=== PATIENT | male | born 1995 | race Caucasian/White ===

== ENCOUNTER 2016-07-14 07:09 | Emergency (ER) | payer BC ==
--- NOTE | 2016-07-14 08:45 | RAD ---
Indication: Lack of coordination. Fall. CT of the brain was performed without IV contrast. Ventricular structures are midline. No midline shift is noted. The extraction spaces are unremarkable. The study is limited due to motion artifact. No definite intracranial mass or hemorrhage is noted. Mastoid air cells and paranasal sinuses are otherwise unremarkable. IMPRESSION: No intracranial mass or hemorrhage is identified.
--- NOTE | 2016-07-14 08:45 | RAD ---
INDICATION: Altered mental status COMPARISON: September 20, 2015 TECHNIQUE: An AP seated portable view obtained at 0830 hours is submitted. FINDINGS: Bones/Soft Tissues: There are no acute bony findings. Cardiomediastinal: The cardiomediastinal silhouette is normal. Lungs: There are no infiltrates. Pleura: There are no pleural effusions. Other: None IMPRESSION: NO ACTIVE DISEASE.
[2016-07-14 08:55] LABS: Hematocrit 42 % (42-52); Hemoglobin 14.1 g/dl (14.0-18.0); Mean Corpuscular HGB Conc 33 g/dl (31-36); Mean Corpuscular Hemoglobin 28 pg (27-31); Mean Corpuscular Volume 83 fL (80-94); Mean Platelet Volume 9 um3 (7.4-10.4); Red Blood Count 5.06 10^6/ul (4.0-5.4); Red Cell Distribution Width 13 % (10.5-15); White Blood Count 8.2 10^3/ul (3.5-10.8)
[2016-07-14 09:11] LABS: ALT 8 U/L (7-52); AST 13 U/L (13-39); Albumin 4.4 g/dL (3.2-5.2); Alkaline Phosphatase 60 U/L (34-104); Anion Gap 5 mmol/L (2-11); BUN/Creatinine Ratio 23.7 (8-20); Blood Urea Nitrogen 27 mg/dL (6-24); CO2 Carbon Dioxide 28 mmol/L (22-32); Calcium 9.3 mg/dL (8.6-10.3); Chloride 103 mmol/L (101-111); Cholesterol 114 mg/dL; EGFR African American 106.4 (>60); EGFR Non-African American 82.8 (>60); Globulin 2.7 g/dL (2-4); Glucose 99 mg/dL (70-100); HDL Cholesterol 35.4 mg/dL; LDL Cholesterol 67 mg/dL; Potassium 3.7 mmol/L (3.5-5.0); Sodium 136 mmol/L (133-145); Total Protein 7.1 g/dL (6.4-8.9); Triglycerides 58 mg/dL
[2016-07-14] MEDS ORDERED: Gadobenate* (CONTRAST) 529 MG/ML 10 ML SDV IV ONE (09:24)
--- NOTE | 2016-07-14 10:18 | RAD ---
Indication: Syncope. MRA of the head was performed utilizing 3-D [id number] technique. Multiple maximum intensity projection images were obtained. The intracranial carotid arteries demonstrates no evidence of carotid artery dissection. Anterior and middle cerebral arteries are unremarkable. No evidence of aneurysmal dilatation or branch occlusion is noted. The basilar artery and posterior cerebral arteries are otherwise unremarkable. IMPRESSION: No evidence of branch occlusion or aneurysmal dilatation is noted.
--- NOTE | 2016-07-14 10:29 | RAD ---
Indication: Syncope. MRA of the neck was performed after IV contrast administration. 15 mL of MultiHance was injected. Axial 2-D drrr-au-ccmauh images were also obtained. The origins of the great vessels demonstrate normal origins of the brachiocephalic and left common carotid artery. The right common carotid artery also demonstrates no significant stenosis. The internal carotid arteries demonstrate no evidence of stenosis. No evidence of carotid artery dissection is noted. The vertebral arteries are visualized. No evidence of vertebral artery dissection is noted. IMPRESSION: MRA of the neck demonstrates no evidence of carotid artery stenosis or dissection.
--- NOTE | 2016-07-14 10:32 | RAD ---
Indication: Ataxia, syncope. Sagittal and axial T1, axial T2, FLAIR, diffusion and susceptibility weighted images of the brain were obtained. 15 mL of MultiHance was injected intravenously and sagittal, coronal and axial T1-weighted images was obtained after contrast administration. Ventricular structures are midline. No midline shift is noted. The extra-axial spaces are unremarkable. There is no evidence of intracranial mass or hemorrhage. No other high or low signal lesions are identified. No evidence of susceptibility weighted artifact is noted. No restriction of diffusion is noted. Postcontrast images demonstrates no evidence of abnormal enhancement. The bony calvaria is otherwise unremarkable. IMPRESSION: No intracranial lesion is identified.
[2016-07-14] MEDS ORDERED: NS 0.9% 1000 ML* 1,000 ML IV ONE ×2 (10:57→11:56)
[2016-07-14 11:23] LABS: Urine Bacteria Absent (Absent); Urine Bilirubin Negative (Negative); Urine Glucose Negative (Negative); Urine Nitrite Negative (Negative)
--- NOTE | 2016-07-14 11:54 | RAD ---
Indication: Neck pain after fall. CT of the cervical spine was obtained in the axial plane. Sagittal and coronal reconstructed images were obtained. The skull base demonstrates no evidence of fracture. Mastoid air cells are otherwise unremarkable. The vertebral bodies appear normal in height and alignment. No fracture is noted. No evidence of facet malalignment is noted. Spinous processes and transverse processes are otherwise unremarkable. No evidence of focal protrusion is noted at any of the cervical spine. The visualized ribs are unremarkable. IMPRESSION: No fracture of the cervical spine is identified.
[2016-07-14 12:04] LABS: Alcohol < 10 mg/dL (<10)
[2016-07-14 12:20] LABS: Benzodiazepine Urine Screen None Detected (None Detect)
[2016-07-14] MEDS ORDERED: Ketorolac INJ* 30 MG/ML 1 ML VIAL IV PUSH ONE (13:00)
[2016-07-14 13:13] VITALS: BP 125/54
--- NOTE | 2016-07-14 20:43 | CONS ---
NEUROLOGY CONSULTATION: DATE OF CONSULTATION: 07/14/16 LOCATION: He is in the emergency room. REFERRING PROVIDER: Dr. Ham. CHIEF COMPLAINT: Episode of loss of consciousness. 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 The history is from his [employer] captain and mainly from the patient as well as from Dr. Ham. He had been a little bit sleep deprived coming off of a cold this past week. He might have had a fever a few nights ago, but he feels that that resolved. He was exercising this morning and he remembers that part of it including doing pushups. The next thing, he knew he was surrounded by his and had ice packs under his legs and they were elevated. Reports given including from his captain who was not at the scene, but was told by others was that after a run, his legs buckled and he collapsed to the ground. He may have hit his occiput that is what he was told by other people. He had some soreness at the base of his skull subsequently. He was brought into the emergency room and was examined by Dr. Ham and it was felt to have nystagmus as well as dysmetria. Since that time, he says he is feeling better. He still has some pain near his occiput. He has not had any vertigo, but he did have some dizziness upon standing when he was trying to use the bathroom earlier today. He has not experienced any change in his vision nor numbness nor tingling in his limbs. Prior to this morning, he had not had any problems with headaches of note or any prior head trauma. Other than the cold, he had been feeling relatively well other than being sleep deprived trying to keep up with his academic work. PAST MEDICAL HISTORY: Notable for right foot surgery for a fracture about 3 months ago. He was here with pharyngitis in the emergency room earlier this year. Other than that, he has no significant past medical history. MEDICATIONS: He does not take any medications on a regular basis. ALLERGIES: According to computer records, he does not have any drug allergies. REVIEW OF SYSTEMS: Notable for the cold which consisted mainly of some nasal stuffiness and perhaps a fever. No history of head trauma or significant history of headaches. No other significant past medical history. PHYSICAL EXAMINATION: He appears well nourished and currently appears well hydrated. Temperature 98.2 orally, blood pressure running about 130/70, heart rate generally in the 70s, was 99 when he first came in. Neck is supple. There is some tenderness near the base of his skull occipitally, but there is no contusion or laceration. Neck range of motion is full. Heart is in a regular rate and rhythm without murmurs and lungs are clear bilaterally. Carotid pulses are present and there are no anterior or posterior cervical bruits. Oral mucosa is moist and there is no evidence of oral trauma. Neurologically, pupils react equally from 5 down to about 2.5 mm. Funduscopic exam reveals sharp disks bilaterally. Visual hwang are full to confrontation. There is no ptosis. Eye movements are normal other than some impersistence of gaze, which goes away with encouragement. Facial musculature is symmetric. Facial sensation to light touch and pin is symmetric. Palate and tongue appear normal. Speech is slow, but clear. Motor exam reveals normal muscle tone and strength proximally and distally in upper and lower extremities. There is a little bit of pseudo-drift with elevation of the right arm, but no actual pronator drift. Sensory exam in the limbs is intact to light touch, pin, vibration, and proprioception. Reflexes are intact and symmetric at brachioradialis, knees, and ankles. He has bilateral antecubital IVs. Plantar responses are flexor bilaterally. Wvhxhh-kh-hjha maneuver is slow, but accurate bilaterally. Finger taps are bit slow on both hands symmetrically. Kajz-ai-sjtz maneuver is normal. I did not attempt to ambulate him. Mentally, he is a bit sluggish, but languages are fluent. Memory is intact other than the epoch described above. Attention and concentration seemed somewhat impaired. DIAGNOSTIC STUDIES/LAB DATA: Laboratory data includes a normal CBC other than a slightly low lymphocyte count at 18.6%. White blood cell count is normal at 8.2, however. INR and PTT are within normal limits. Chemistry profile notable for an elevated BUN at 27 and BUN and creatinine ratio at 23.7. CT of the brain, MRI of the brain, MR angiogram of the neck and head were all reviewed and all are normal. IMPRESSION: Probable faint in the setting of exercise and dehydration and probable concussion. There is no evidence of a primary intracranial process, central nervous system infection, or metabolic disorder. He does have a toxicology and alcohol screen pending. At this point, I will just hydrate him and treat his head pain symptomatically. I would make sure he is safe to ambulate before considering discharge. [id number]/CPS #: [id number] MTDD
--- NOTE | 2016-07-24 17:55 | ED ---
echo Kerr Timothy, scribed for Igor Ham MD on 07/14/16 at 0747 . Syncope/Near Syncope - HPI Summary HPI Summary: Irvin Jimenez is a 20 yo male presenting to [facility] S/P a witnessed syncopal episode at 0638 this morning. He states he only had 3 hours of sleep last night since he has been studying for a test, but did eat breakfast this morning. Pt states morning workouts begin at 0545. Present in room is [facility]. Per the lieutenant, he was about half a mile into a 3/4 mile run, and fell backward and did not hit his head. He was given water, and ice packs were applied to his legs and groin. His consciousness began to fade, and answers to questions were very slow, but accurate. Police checked his pupils, and they were MORGAN. The lieutenant states he never saw the Pt lose consciousness. The Pt states he was running on a track inside at [place], and his legs gave out from under him, and he lost consciousness. After that, Pt's response was appropriate, but delayed. He states he feels better currently. He was confused at the time of syncope, and doesn't really remember any details surrounding the episode. He is currently in 6/10 pain, in the form of ALLEN and neck pain, and is dizzy. He did not bite his tongue, and was not incontinent. He is oriented to person, time and place. He does not normally wear glasses. His MHx includes PNA 3 weeks ago, he denies any other MHx - History Of Current Complaint Time Seen by Provider: 07/14/16 07:57 Hx Obtained From: Patient Onset/Duration: Sudden Onset, Lasting Minutes Timing: Intermittent Episode Lasting Context: Unwitnessed, Loss Of Consciousness Activity At Onset: Exertion Associated Head Trauma: No Alleviating Factor(s): Spontaneous Resolution Associated Signs And Symptoms: Dizzy, Headache - Allergies/Home Medications Allergies/Adverse Reactions: Allergies Allergy/AdvReac Type Severity Reaction Status Date / Time No Known Allergies Allergy Verified 07/14/16 07:58 PMH/Surg Hx/FS Hx/Imm Hx Endocrine/Hematology History: Denies: Hx Diabetes Cardiovascular History: Denies: Hx Hypertension, Hx Pacemaker/ICD History: Denies: Hx Renal Disease Sensory History: Denies: Hx Hearing Aid Psychiatric History: Denies: Hx Panic Disorder - Surgical History Surgery Procedure, Year, and Place: ADENOIDS-2003. ENLARGED URETHRA AGE 10 Infectious Disease History: No Infectious Disease History: Denies: Traveled Outside the [place] in Last 30 Days - Family History Known Family History: Negative: Other - strokes, mulile sclerosis - Social History Alcohol Use: None Substance Use Type: Reports: None Smoking Status (MU): Never Smoked Tobacco Review of Systems Constitutional: Negative Negative: Fever, Chills Eyes: Negative Negative: Other - eye redness ENT: Negative Negative: Sore Throat Cardiovascular: Negative Negative: Chest Pain Respiratory: Negative Negative: Shortness Of Breath, Cough Gastrointestinal: Negative Negative: Abdominal Pain, Vomiting, Nausea Genitourinary: Negative Negative: dysuria, hematuria Musculoskeletal: Negative Negative: Myalgia, Edema - leg Skin: Negative Negative: Rash Neurological: Other - dizziness, possible memory loss Positive: Syncope Psychological: Normal All Other Systems Reviewed And Are Negative: Yes Physical Exam - Summary Physical Exam Summary: Constitutional: Well-developed, Well-nourished, Alert. (-) Distressed Skin: Warm, Dry HENT: Eyes: Conjunctiva normal Neck: Musculoskeletal ROM normal neck. (-) JVD, (-) Stridor, (-) Tracheal deviation Cardio: Rhythm regular, rate normal, Heart sounds normal; Intact distal pulses ; The pedal pulses are 2+ and symmetric. Radial pulses are 2+ and symmetric. (- ) Murmur Pulmonary/Chest wall: Effort normal. (-) Respiratory distress, (-) Wheezes, (-) Rales Abd: Soft. (-) Tenderness, (-) Distension, (-) Guarding, (-) Rebound Musculoskeletal: (-) Edema Lymph: (-) Cervical adenopathy Neuro: Alert, Oriented x3, Strength normal, Cranial nerves II-XII are grossly intact. (+) Dysmetria bilateral, (+) Nystagmus, (+) Ataxia by finger to nose testing, (-) Sensory deficit, pronator drift LUE. Psych: Mood and affect Normal Triage Information Reviewed: Yes Vital Signs On Initial Exam: Initial Vitals Temp Pulse Resp BP Pulse Ox 98.2 F 83 18 144/85 99 07/14/16 07:23 07/14/16 07:23 07/14/16 07:23 07/14/16 07:23 07/14/16 07:23 Vital Signs Reviewed: Yes Diagnostics - Vital Signs Vital Signs Temp Pulse Resp BP Pulse Ox 07/14/16 07:23 98.2 F 83 18 144/85 99 - Laboratory Result Diagrams: 07/14/16 08:47 07/14/16 08:47 Lab Statement: Any lab studies that have been ordered have been reviewed, and results considered in the medical decision making process. - Radiology CXR Xray Interpretation: No Acute Changes - IMPRESSION: NO ACTIVE DISEASE. Radiology Interpretation Completed By: Radiologist Head MRA Xray Interpretation: No Acute Changes - IMPRESSION: No evidence of branch occlusion or aneurysmal dilatation is noted. Radiology Interpretation Completed By: Radiologist Neck MRA Xray Interpretation: No Acute Changes - IMPRESSION: MRA of the neck demonstrates no evidence of carotid artery stenosis or dissection. Radiology Interpretation Completed By: Radiologist Brain MRI Xray Interpretation: No Acute Changes - IMPRESSION: No intracranial lesion is identified. Radiology Interpretation Completed By: Radiologist - CT Brain CT Interpretation: No Acute Changes - IMPRESSION: No intracranial mass or hemorrhage is identified. CT Interpretation Completed By: Radiologist C-spine CT Interpretation: No Acute Changes - IMPRESSION: No fracture of the cervical spine is identified. CT Interpretation Completed By: Radiologist - EKG 1042 Cardiac Rate: NL - 64 BPM EKG Interpretation: Sinus arrhythmia @ 64 BP. J point elevations in II, AVF, V5 , V6 National Institutes Of Health - NIH Scale Level of Consciousness: Alert/Keenly Responsive Ask Patient the Month and His/Her Age: Both Correct Ask Pt to Open/Close Eyes and Vet Assistant/Release Non-Paretic Hand: Both Correctly Best Gaze (Only Horizontal Eye Movement): Normal Visual Field Testing: No Visual Loss Facial Paresis-Pt to Smile & Close Eyes or Grimace Symmetry: Normal/Symmetrical Motor Function - Right Arm: No Drift-Holds 10 Seconds Motor Function - Left Arm: Drifts LT 10 seconds Motor Function - Right Leg: No Drift-Holds 10 Seconds Motor Function - Left Leg: No Drift-Holds 10 Seconds Limb Ataxia-Must be out of Proportion to Weakness Present: Present in One Limb - left Sensory (Use Pinprick to Test Arms/Legs/Trunk/Face): Normal Best Language (Describe Picture, Name Items): No Aphasia Dysarthria (Read Several Words): Normal Extinction and Inattention: No Abnormality Total Score: 2 Re-Evaluation - Re-Evaluation First Eval Re-Evaluation Time: 08:38 Change: Unchanged Comment: Pt is complaining of intense ALLEN. Slight left facial droop. Second Eval Re-Evaluation Time: 12:54 Change: Improved Comment: Pt has improved conversational capabilities. He is not exhibiting any focal deficits. Course/Dx Assessment/Plan: Irvin Jimenez is a 20 yo male presenting to [facility] with either syncope or memory loss. Present in room is his lieutenant, who states he never saw the Pt lose consciousness, but Pt states he does not remember what happened to him, only that his legs folded underneath him. Pt scored a 0 on the NIH stroke scale, and is slow but accurate in responses to questions. After clinical examination and evaluation by Dr. Camara, as well as negative CXR, normal EKG, negative head MRA, negative neck MRA, and negative brain MRI, he will be discharged home with syncope, postconcussive syndrome, and dehydration. - Diagnoses Provider Diagnoses: Postconcussive syndrome, Syncope, Dehydration - Physician Notifications Discussed Care Of Patient With: 0816 - Dr. Camara (neuology) - discussed Pt condition, will evaluate Pt if necessary. Recommends MRI/MRA with negative CT brain. 0847 - Dr. Guzman (neuroradiologist) - discussed Pt condition, recommends STAT MRI and will facilitate. 1109 - Dr. Camara (neurology) - discussed Pt condition and results of MRI/MRA's. Will come down to evaluate Pt. 1153 - Dr. camara (neurology) - discussed evaluation of Pt, recommends discharge Discharge - Discharge Plan Condition: Stable Disposition: HOME Patient Education Materials: Syncope (ED), Dehydration (ED) Forms: *School Release, *Physical Education Release Referrals: [facility] ANALI Lara [Primary Care Provider] - 1 Day Additional Instructions: Please follow up with Anali regarding your visit to the emergency department today. Return to the emergency department with any new or recurring symptoms. The documentation as recorded by the echo millan Timothy accurately reflects the service I personally performed and the decisions made by me, Igor Ham MD.
== END 2016-07-14 13:47 | disposition home or self-care (01) ==
LOC: ED 07:09
DX: F07.81 Postconcussional syndrome (principal); R55 Syncope and collapse; R42 Dizziness and giddiness; E86.0 Dehydration; R51 Headache
CPT/HCPCS: 36415; 70450; 70544; 70549; 70553; 71010; 72125; 80053; 80061; 80307; 80320; 81003; 83605; 84484; 85025; 85610; 85730; 86850; 86900; 86901; 93005; 99285; A9577; G0480; J1885

== ENCOUNTER 2017-07-21 00:34 | Observation (INO) | payer BC ==
[2017-07-21] MEDS ORDERED: NS 0.9% 1000 ML* 2,000 ML IV ONE (01:18)
[2017-07-21] MEDS ORDERED: Acetaminophen TAB* 325 MG PO ONE (01:18)
[2017-07-21] MEDS ORDERED: Ketorolac INJ* 30 MG/ML 1 ML VIAL IV PUSH ONE (01:20)
[2017-07-21] MEDS ORDERED: Levofloxacin 750 MG IVPREMIX(* 750 MG/150 ML BAG IVPB ONE (01:20)
[2017-07-21 01:45] LABS: ABS Basophils 0 10^3/ul (0-0.2); ABS Eosinophils 0.1 10^3/ul (0-0.6); ABS Lymphocytes 0.9 10^3/ul (1.0-4.8); ABS Monocytes 1.1 10^3/ul (0-0.8); ABS Neutrophils 18.2 10^3/ul (1.5-7.7); ABS Nucleated RBC 0 10^3/ul; Eosinophil % 0.3 % (0-6); Hematocrit 38 % (42-52); Hemoglobin 12.6 g/dl (14.0-18.0); Lymphocyte % 4.5 % (25-47); Mean Corpuscular HGB Conc 34 g/dl (31-36); Mean Corpuscular Hemoglobin 28 pg (27-31); Mean Corpuscular Volume 83 fL (80-94); Mean Platelet Volume 8 um3 (7.4-10.4); Nucleated Red Blood Cells % 0; Platelet Count 200 10^3/ul (150-450); Red Blood Count 4.51 10^6/ul (4.0-5.4); Red Cell Distribution Width 13 % (10.5-15); White Blood Count 20.3 10^3/ul (3.5-10.8)
[2017-07-21 01:58] LABS: EGFR Non-African American 85.3 (>60)
[2017-07-21] MEDS ORDERED: NS 0.9% 1000 ML* 1,000 ML IV SCH (02:45)
--- NOTE | 2017-07-21 02:45 | ED ---
Konrad Kerr Stephanie, scribed for Essie Yee MD on 07/21/17 at 0122 . HPI Febrile Illness - HPI Summary HPI Summary: The pt is a 21 y/o M presenting to the ED with c/o fever that began on 07/18/17. Symptoms include cough that began 1 month ago and CP with deep breaths. The pt took 1 Alieve in the morning, 2 in the afternoon, and one Dayquil tablet 2 hours ago. - History of Current Complaint Chief Complaint: EDFluSymptoms Time Seen by Provider: 07/21/17 00:59 Hx Obtained From: Patient Onset/Duration: Started Days Ago - 3, Still Present Timing: Constant Current Severity: Mild Pain Intensity: 0 Pain Scale Used: 0-10 Numeric Aggravating Factors: Nothing Alleviating Factors: Nothing Associated Signs and Symptoms: Cough, Other: - CP with deep breath - Allergy/Home Medications Allergies/Adverse Reactions: Allergies Allergy/AdvReac Type Severity Reaction Status Date / Time No Known Allergies Allergy Verified 07/14/16 07:58 PMH/Surg Hx/FS Hx/Imm Hx Endocrine/Hematology History: Denies: Hx Diabetes Cardiovascular History: Denies: Hx Hypertension, Hx Pacemaker/ICD History: Denies: Hx Renal Disease Sensory History: Denies: Hx Hearing Aid Psychiatric History: Denies: Hx Panic Disorder - Surgical History Surgery Procedure, Year, and Place: [facility]ENOIDS-2002. ENLARGED URETHRA AGE 10 Infectious Disease History: No Infectious Disease History: Denies: Traveled Outside the [place] in Last 30 Days - Family History Known Family History: Negative: Other - strokes, mulile sclerosis - Social History Occupation: Student Lives: Dormitory/Roommates Alcohol Use: None Substance Use Type: Reports: None Smoking Status (MU): Never Smoked Tobacco Review of Systems Positive: Fever Positive: Chest Pain - with deep breath Positive: Cough All Other Systems Reviewed And Are Negative: Yes Physical Exam - Summary Physical Exam Summary: VITAL SIGNS: Reviewed. GENERAL: Patient is a well-developed and nourished MALE who is lying comfortable in the stretcher. Patient is not in any acute respiratory distress. HEAD AND FACE: No signs of trauma. No ecchymosis, hematomas or skull depressions. No sinus tenderness. EYES: PERRLA, EOMI x 2, No injected conjunctiva, no nystagmus. EARS: Hearing grossly intact. Ear canals and tympanic membranes are within normal limits. MOUTH: Oropharynx within normal limits. NECK: Supple, trachea is midline, no adenopathy, no JVD, no carotid bruit, no c- spine tenderness, neck with full ROM. CHEST: Symmetric, no tenderness at palpation LUNGS: Rales over L base. No wheezing or crackles. CVS: tackycardic. Regular rhythm, S1 and S2 present, no murmurs or gallops appreciated. ABDOMEN: Soft, non-tender. No signs of distention. No rebound no guarding, and no masses palpated. Bowel sounds are normal. EXTREMITIES: FROM in all major joints, no edema, no cyanosis or clubbing. NEURO: Alert and oriented x 3. No acute neurological deficits. Speech is normal and follows commands. SKIN: Dry and warm Triage Information Reviewed: Yes Vital Signs On Initial Exam: Initial Vitals Temp Pulse Resp BP Pulse Ox 101.4 F 120 16 134/54 99 07/21/17 00:36 07/21/17 00:36 07/21/17 00:36 07/21/17 00:36 07/21/17 00:36 Vital Signs Reviewed: Yes Diagnostics - Vital Signs Vital Signs Temp Pulse Resp BP Pulse Ox 07/21/17 00:36 101.4 F 120 16 134/54 99 - Laboratory Lab Results: Lab Results 07/21/17 Range/Units 00:48 Influenza A (Rapid) Negative (Negative) Influenza B (Rapid) Negative (Negative) Result Diagrams: 07/21/17 01:30 07/21/17 01:30 Lab Statement: Any lab studies that have been ordered have been reviewed, and results considered in the medical decision making process. - Radiology CXR Xray Interpretation: No Acute Changes Radiology Interpretation Completed By: ED Physician - Left lower lobe infiltrates. Course/Dx - Course Course Of Treatment: Dr. Rajput agrees to admit the pt to the hospital at 02:06. - Diagnoses Provider Diagnoses: PNA (pneumonia) - Provider Notifications Discussed Care Of Patient With: Briana Rajput - Agrees to admit the pt. Time Discussed With Above Provider: 02:07 Discharge - Discharge Plan Condition: Stable Disposition: ADMITTED TO [facility] Patient Education Materials: Pneumonia (ED) Referrals: [facility] - Nahun ELKINS [Primary Care Provider] - The documentation as recorded by the Konrad millan Stephanie accurately reflects the service I personally performed and the decisions made by me, Essie Yee MD.
[2017-07-21] MEDS ORDERED: Ketorolac INJ* 15 MG/ML 1 ML VIAL IV PUSH PRN (02:51)
[2017-07-21] MEDS: Benzonatate CAP* 100 MG PO PRN ×3 (05:04→21:00)
--- NOTE | 2017-07-21 08:06 | RAD ---
INDICATION: Cough. COMPARISON: Comparison is made with prior chest x-ray study from July 14, 2016. TECHNIQUE: Dual-energy PA and lateral views of the chest were obtained. FINDINGS: The heart is within normal limits in size. Mediastinal and hilar contours appear within normal limits. There is a focal moderate size infiltrate in the left lower lobe most consistent with pneumonia. No pleural effusion is seen. The right lung appears clear. IMPRESSION: LEFT LOWER LOBE INFILTRATE MOST CONSISTENT WITH PNEUMONIA.
--- NOTE | 2017-07-21 08:47 | HP ---
CC: Former[facility], [facility].* HISTORY AND PHYSICAL: DATE OF ADMISSION: 07/21/17 PRIMARY CARE PROVIDER: [facility]. CHIEF COMPLAINT: Weakness, flu-like symptoms. HISTORY OF PRESENT ILLNESS: Mr. Jimenez is a 21-year-old male who has been sick for the last 3 to 4 weeks. He states that he has had a persistent cough over that period of time. He has been bringing up sputum. He has had intermittent fevers, though he is unaware of high these have gone. The patient states that he was treated with azithromycin for a 5-day course; this finished the day prior to admission. The patient's friends noted on the day prior admission that he had become markedly weak. The patient complained of dizziness. He reportedly had a fall. He had difficulty climbing stairs. His friends state that he was incoherent and acting like he was drunk. Ultimately, his friends convinced him to present to the emergency room for evaluation. PAST MEDICAL HISTORY: Pneumonia approximately 2 years ago. PAST SURGICAL HISTORY: Right foot surgery x2. MEDICATIONS: 1. Advil. 2. Tylenol. 3. Aleve. ALLERGIES: No known drug allergies. FAMILY HISTORY: Mom is living; she is healthy. Dad is also living and healthy. SOCIAL HISTORY: The patient is a nonsmoker. He states he has not drank alcohol in the last approximately one month. Prior to that, he used to drink alcohol on occasion. He denies any recreational drugs. 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 He is also an [employer]. He is originally from [place]. He is not . He has no children. He indicates that his mom, Flora, phone number [phone], would be his surrogate decision maker. REVIEW OF SYSTEMS: A complete 11 system review of systems is obtained. Pertinent positives and negatives are as per HPI; and, in addition, the patient states his appetite has been poor. He also states that his chest feels tight. Otherwise, review of systems is negative. PHYSICAL EXAMINATION GENERAL: The patient is a well-developed, young male sitting in the stretcher, appearing to be acutely ill with a flushed face and sweat beads noted on his forehead, but in no acute distress. VITAL SIGNS: Blood pressure 114/50, pulse 95, respirations 16, temp 101.4, and O2 sat 92% to 95% on room air. HEENT: Pupils are equal and round. Extraocular movements are intact. Oropharynx is clear. Oral mucosa is moist. The patient has a posterior cervical chain lymph node on the left. He states it has been present for approximately 4 months. There is no other adenopathy noted. Thyroid is not enlarged. No thyroid nodules are noted. PULMONARY: Deep breath triggers cough, but otherwise lungs are clear to auscultation bilaterally. CARDIAC: Normal S1 and S2. Regular, rate, and rhythm. I do not appreciate any murmurs. There is no lower extremity edema. ABDOMEN: Bowel sounds are present. Abdomen is soft, nontender, and nondistended. MUSCULOSKELETAL: There is no cyanosis or clubbing of the digits. There is full active range of motion of all 4 extremities. SKIN: Warm and dry, there are no rashes. NEUROLOGIC: Cranial nerves II through XII are grossly intact. Sensation is intact to light touch throughout. Strength is 5/5 and symmetric in both upper and lower extremities bilaterally. PSYCH: The patient is alert, he is oriented x3. Affect appears appropriate. LABORATORY DATA: WBC 20.3, hemoglobin 12.6, hematocrit 38, platelets 200. Absolute neutrophils 18.2. Sodium 133, potassium 3.8, chloride 100, CO2 of 26, BUN 18, creatinine 1.10, glucose 120, lactic acid 0.6, calcium 9.2, bilirubin 0.3, AST 19, ALT 18, alk phos 75, CRP 238.11, and albumin 4.0. Influenza A and B negative. Chest x-ray to my evaluation shows possible left lower lobe infiltrate. ASSESSMENT AND PLAN: Mr. Jimenez is a 21-year-old male with no significant past medical history who presents to the emergency room after having a prolonged illness over the last 3 to 4 weeks where he has felt as if he has the flu, now with increased weakness, dizziness, and appearing confused on the night prior to admission. 1. Sepsis secondary to left lower lobe pneumonia. The patient is septic based on sepsis-2 criteria, but no sepsis-3 criteria. There is no evidence of end- organ dysfunction. The patient's friend stated at this point after receiving some IV fluids in the emergency room he is appearing somewhat better. The patient will be admitted to be given IV fluid hydration and IV antibiotics. The patient will receive Levaquin 500 mg IV daily. He has already received a dose of 750 mg in the emergency room. Urine for Legionella and strep pneumoniae antigens will be sent. Additionally, we will attempt to get a sputum culture. I am adding on a procalcitonin to the labs drawn in the emergency room. The patient's infiltrate appears slightly odd on the chest x-ray. Perhaps a CT chest would be warranted, especially if he does not show signs of improvement. I question if this may be a post-influenza pneumonia given the fact that he was ill a few weeks ago, but now worse so. 2. DVT prophylaxis. According to the Adult Thrombosis Prophylaxis Risk Factor Assessment Guide the patient has a total risk factor score of 1 making him low risk. Ambulation will be utilized as DVT prophylaxis. 3. Code status is full. TIME SEEN: 55 minutes were spent admitting this patient. [id number]/CPS #: [id number] MTDD
[2017-07-21] MEDS: guaiFENesin ER TAB 600 MG PO SCH ×2 (08:52→21:00)
[2017-07-21] MEDS ORDERED: Albuterol 2.5 MG/3 ML NEB.SOL* (0.083%) INH PRN (08:57)
[2017-07-21] MEDS ORDERED: Influenza VAC *QUAD* 2017-18* 0.5 ML SYRINGE IM ONE (09:00)
--- NOTE | 2017-07-21 12:08 | PN ---
Subjective Date of Service: 07/21/17 Interval History: Patient states he feels somewhat better and has increased ability to ambulate but is still very SOB with ambulation. Patient states that his chest feels tighter than yesterday. Patient denies a history of Asthma. Patient denies smoking but states that he has had significant exposure to second hand smoke recently. Patient denies F/C, N/V, abdominal pain, diarrhea, constipation, dizziness, or other pain. Family History: Unchanged from Admission Social History: Unchanged from Admission Past Medical History: Findings - Patient has a right sided reducible inguinal hernia with planned surgical fixation in early august. Objective Active Medications: Acetaminophen (Tylenol Tab*) 650 mg PO Q4H PRN PRN Reason: pain/fever Albuterol (Ventolin 2.5 Mg/3 Ml Neb.Radha*) 2.5 mg INH Q4H PRN PRN Reason: SOB/WHEEZING Benzonatate (Tessalon Cap*) 200 mg PO TID PRN PRN Reason: COUGH Last Admin: 07/21/17 08:52 Dose: 200 mg Guaifenesin (Mucinex*) 1,200 mg PO BID SABA Last Admin: 07/21/17 08:52 Dose: 1,200 mg Levofloxacin/Dextrose (Levaquin 500 Mg Ivpremix(*)) 500 mg in 100 mls @ 100 mls /hr IVPB Q24H SABA Ketorolac Tromethamine (Toradol Inj*) 15 mg IV PUSH Q6H PRN PRN Reason: PAIN Vital Signs - 8 hr 07/21/17 07/21/17 07/21/17 08:00 08:01 10:57 Temperature 98.5 F 100.1 F Pulse Rate 80 92 Respiratory 14 14 18 Rate Blood Pressure 114/60 131/66 (mmHg) O2 Sat by Pulse 97 97 96 Oximetry Oxygen Devices in Use Now: None Appearance: Patient is a 21yo male who appears stated age and is sitting in the bed in NAD. Eyes: No Scleral Icterus, PERRLA Ears/Nose/Mouth/Throat: NL Teeth, Lips, Gums, Clear Oropharnyx, Mucous Membranes Moist Neck: NL Appearance and Movements; NL JVP, Trachea Midline Respiratory: Symmetrical Chest Expansion and Respiratory Effort, - - Crackles in right lung base that clear with deep breathing. Cardiovascular: NL Sounds; No Murmurs; No JVD, RRR, No Edema Abdominal: NL Sounds; No Tenderness; No Distention, No Hepatosplenomegaly Lymphatic: No Cervical Adenopathy Extremities: No Edema, No Clubbing, Cyanosis Skin: No Rash or Ulcers, No Nodules or Sclerosis Neurological: Alert and Oriented x 3, NL Sensation, NL Muscle Strength and Tone , - - CN II-XII intact. Result Diagrams: 07/21/17 01:30 07/21/17 01:30 Additional Lab and Data: Lab Results 07/21/17 Range/Units 00:48 Influenza A (Rapid) Negative (Negative) Influenza B (Rapid) Negative (Negative) Microbiology and Other Data: Microbiology 07/21/17 03:05 Legionella Urinary Antigen - Final Urine Negative Legionella Streptococcus pneumoniae Ag Screen - Final Negative S. pneumo Antigen Assess/Plan/Problems-Billing Assessment: Patient is a 21yo male with no pertinent PMH who presents with LLL pneumonia possibly after infection with flu. Patient is responding to Levaquin and rehydration. Patient has no other complaints. - Patient Problems (1) LLL pneumonia Current Visit: Yes Status: Acute Code(s): J18.1 - LOBAR PNEUMONIA, UNSPECIFIED ORGANISM SNOMED Code(s): 555788494 Comment: Patient has LLL infiltrate on CXR with SOB, Fever, Tachycardia, elevated CRP and procalcitonin. Patient in improving with IV fluids and antibiotics. Patient previously had a "walking pneumonia" 2 years ago which was also contracted by other members of his dorm. HIV testing pending. Patient denies high risk behaviors. Patient has "chest tightness" with no history of asthma. Will order nebulizer PRN. (2) Indirect inguinal hernia Current Visit: Yes Status: Acute Code(s): K40.90 - UNIL INGUINAL HERNIA, W/ O OBST OR GANGR, NOT SPCF RECUR SNOMED Code(s): 13779118 Comment: Seen by surgeon. No signs of strangulation. Easily reducible. Plan for surgery in [place] in early August. (3) DVT prophylaxis Current Visit: Yes Status: Acute Code(s): ZQK7010 - SNOMED Code(s): 010916360 Comment: Low risk, SCDs and frequent ambulation. (4) Full code status Current Visit: Yes Status: Acute Code(s): Z78.9 - OTHER SPECIFIED HEALTH STATUS SNOMED Code(s): 270213153 Status and Disposition: Admitted OBV.
[2017-07-21] MEDS: Acetaminophen TAB* 325 MG PO PRN (21:00)
[2017-07-22] MEDS ORDERED: Levofloxacin 500 MG IVPREMIX(* 500 MG/100 ML BAG IVPB SCH (02:00)
[2017-07-22] MEDS: Acetaminophen TAB* 325 MG PO PRN (02:22)
[2017-07-22 06:03] LABS: ABS Basophils 0 10^3/ul (0-0.2); ABS Eosinophils 0.2 10^3/ul (0-0.6); ABS Lymphocytes 1.2 10^3/ul (1.0-4.8); ABS Neutrophils 11.8 10^3/ul (1.5-7.7); ABS Nucleated RBC 0 10^3/ul; Eosinophil % 1.6 % (0-6); Hematocrit 37 % (42-52); Hemoglobin 12.6 g/dl (14.0-18.0); Lymphocyte % 8.5 % (25-47); Mean Corpuscular HGB Conc 34 g/dl (31-36); Mean Corpuscular Hemoglobin 29 pg (27-31); Mean Corpuscular Volume 84 fL (80-94); Mean Platelet Volume 9 um3 (7.4-10.4); Nucleated Red Blood Cells % 0; Platelet Count 215 10^3/ul (150-450); Red Blood Count 4.42 10^6/ul (4.0-5.4); Red Cell Distribution Width 14 % (10.5-15); White Blood Count 14.2 10^3/ul (3.5-10.8)
[2017-07-22 06:30] LABS: EGFR Non-African American 106.2 (>60)
[2017-07-22 08:26] VITALS: BP 99/47
[2017-07-22] MEDS: guaiFENesin ER TAB 600 MG PO SCH (09:10)
--- NOTE | 2017-07-23 00:04 | DS ---
CC: [facility] * DISCHARGE SUMMARY: DATE OF ADMISSION: 07/21/17 DATE OF DISCHARGE: 07/22/17 PRIMARY CARE PROVIDER: [facility]. MY ATTENDING WHILE IN THE HOSPITAL: Dr. Jonah Hale.* (DICTATED BY MICHAEL JONES) PRIMARY DISCHARGE DIAGNOSIS: Lobar pneumonia in the left lower lobe. SECONDARY DISCHARGE DIAGNOSIS: Right indirect inguinal hernia, easily reducible. STUDIES DONE WHILE IN THE HOSPITAL: Chest x-ray from 07/21/17 read as left lower lobe infiltrate most consistent with pneumonia. MEDICATIONS AT DISCHARGE: 1. Naproxen 500 mg p.o. q.8 hours as needed for pain or fever. 2. Tylenol 650 mg p.o. q.4 hours if needed for pain or fever. 3. Tessalon 200 mg p.o. t.i.d. as needed for cough. 4. Guaifenesin 25 mg p.o. b.i.d. 5. Levofloxacin 500 mg p.o. daily x8. New medications at discharge: 1. Tylenol. 2. Tessalon. 3. Mucinex. 4. Levofloxacin. Medications discontinued on discharge: None. HOSPITAL COURSE: This is a brief summary of the patient's presentation. For more details, please see the history and physical from Dr. Briana Rajput on 12/31. In brief, the patient is a 21-year-old female with past medical history significant only for indirect inguinal hernia and walking pneumonia 2 years ago , who presented with a sickness that lasted approximately 3 to 4 weeks. He had cough, sputum, intermittent fevers. He was treated with erythromycin, which did not help alleviate these symptoms. The patient had dizziness, weakness and altered mental status before his admission to the hospital. The patient was found to have left lower lobe pneumonia as above on his chest x-ray. The patient improved significantly with fluids and IV antibiotics. While in the emergency department, the patient was admitted to the hospital for pneumonia possibly due secondary to previous exposure to the flu. The patient on admission had a white blood cell count of 20.3, had a temperature of 101.4, was tachycardic and met sepsis criteria. The patient also had a CRP of 238. The patient's influenza tests were negative. The patient improved greatly over his first day in the hospital. The patient was tested for HIV 1 and 2, which was nonreactive. The patient was transitioned to oral antibiotics on 07/22/17, was able to ambulate around the unit without hypoxia, though the patient had persistent weakness and cough. The patient was amenable to discharge on oral antibiotics. On discussion with the patient's mother, it was reported the patient had swelling in the lymphatic tissue of his neck approximately around April 2017 that had no obvious cause, but was not found on exam while in the hospital. PHYSICAL EXAMINATION ON THE DAY OF DISCHARGE: General: The patient is a 21- year- old male who appears stated age and sitting comfortably in bed, in no acute distress. HEENT: Head: Normocephalic, atraumatic. Sclerae anicteric. No conjunctival injection. Nasal mucosa moist. Oral mucosa moist. No pharyngeal erythema, discharge, or exudates. Vital Signs: At the time of discharge, temperature 97.9, pulse rate 54, respiratory rate 18, oxygen saturation 97% on room air, blood pressure 99/47. Neck: Supple, nontender. No lymphadenopathy. No carotid bruits auscultated. No JVD. Cardiac: Regular rate and rhythm. No clicks, murmurs, gallops, or rubs. Pulses are 2+ in the bilateral dorsalis pedis, posterior tibialis, and radial areas. No tenderness in the calves to palpation bilaterally. Respiratory: Crackles heard in the left lower lung base consistent with previous exams. Good air exchange bilaterally. No other adventitious lung sounds. Abdomen: Soft, nontender, nondistended. Bowel sounds are present and normoactive in all 4 quadrants. No hepatosplenomegaly. No abdominal bruits are auscultated. Small reducible inguinal hernia palpated in the right lower quadrant. Skin: Clear, dry and intact. No rash. Neuro: Cranial nerves II through XII intact. Normal gait. Alert and oriented x3. No focal deficits. Psychiatric: Very pleasant and cooperative. DIAGNOSTIC STUDIES/LAB DATA: Laboratory data on the day of discharge, white blood cell count 14.2, hemoglobin 12.6. Sodium 135, potassium 3.9, chloride 101 , carbon dioxide 27, anion gap 7, BUN 9, creatinine 0.91, glucose 107, calcium 9.3. DISCHARGE PLAN: The patient will be discharged to home. The patient's mother came from [place] and will be there for support. The patient should be continued on Levaquin for a total of 10 days, which includes 8 more pills. The patient should have symptomatic treatment with guaifenesin benzonatate, Tylenol and naproxen as needed. The patient is [employer] and should abstain from any strenuous exercise until he is more fully recovered. The patient should return to the hospital for alarming symptoms such as severely increased shortness of breath, fevers unresponsive to medications, severely altered mental status or severe abdominal pain. The patient should otherwise engage in activity as tolerated, have regular unrestricted diet. Given this is the only patient's second episode of pneumonia and he is at a large campus with significant exposure to sources of pneumonia, we will not pursue further immunodeficiency workup past HIV testing at this time. TIME SPENT: Approximately 60 minutes were spent on this discharge, 30 of which was spent [id number] with the patient obtaining history and physical and discussing the treatment plan. MICHAEL JONES [id number]/[facility] #: [id number] RONALDO
== END 2017-07-22 14:15 | disposition home or self-care (01) ==
LOC: ED 00:34 → MED 02:31
PROVIDERS: ADMIT Hospitalist; ATTEND Internal Medicine
DX: A41.9 Sepsis, unspecified organism (principal); J18.1 Lobar pneumonia, unspecified organism; K40.90 Unilateral inguinal hernia, without obstruction or gangrene, not specified as recurrent; Z23 Encounter for immunization; Z79.899 Other long term (current) drug therapy
CPT/HCPCS: 36415; 71046; 80048; 80053; 82550; 83605; 84145; 85025; 86140; 86703; 87040; 87502; 87899; 90471; 90686; 96365; 96366; 96375; 99284; A9270-GY; G0008; G0378; J1885; J1956

== ENCOUNTER 2018-08-10 03:31 | Inpatient (IN) | payer BC ==
--- NOTE | 2018-08-10 03:35 | ED ---
Psychiatric Complaint - HPI Summary HPI Summary: A 22 y/ M brought in by ambulance and police presents to ED for MHE. Per police : Pt called a suicide prevention line and [employer] went to the patient's apartment, pt is being cooperative. At bedside, pt says he's been upset for the past month , he denies any specific problem. He had a plan to suffocate himself with a plastic bag. He had obtained a bag. He saw a counselor for the first time last week at [facility]. Denies medications. No previous suicide attempts. Pt is from [place]. 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 - History Of Current Complaint Hx Obtained From: Patient, Other: - pos: police Onset/Duration: Lasting Weeks, Still Present Timing: Constant Severity Currently: Severe Has Suicidal: Reports: Thoughts, With A Plan, Demonstrates Gesture. Denies: Has Prior Attempt(s) - Allergies/Home Medications Allergies/Adverse Reactions: Allergies Allergy/AdvReac Type Severity Reaction Status Date / Time No Known Allergies Allergy Verified 07/14/16 07:58 PMH/Surg Hx/FS Hx/Imm Hx Previously Healthy: Yes Endocrine/Hematology History: Denies: Hx Diabetes Cardiovascular History: Denies: Hx Hypertension, Hx Pacemaker/ICD History: Denies: Hx Renal Disease Musculoskeletal History: Reports: Other Musculoskeletal History - HX of broken right ankle Sensory History: Denies: Hx Contacts or Glasses, Hx Hearing Aid Opthamlomology History: Denies: Hx Contacts or Glasses Psychiatric History: Denies: Hx Panic Disorder - Surgical History Surgery Procedure, Year, and Place: [facility]-2003. ENLARGED URETHRA AGE 10 - Family History Known Family History: Negative: Other - strokes, mulile sclerosis - Social History Occupation: Student Lives: Alone Alcohol Use: None Hx Substance Use: No Substance Use Type: Reports: None Hx Tobacco Use: No Smoking Status (MU): Never Smoked Tobacco Review of Systems Negative: Cough Psychological: Other - pos: SI with plan and gesture All Other Systems Reviewed And Are Negative: Yes Physical Exam - Summary Physical Exam Summary: Appearance: Well-appearing, Well-nourished, lying in bed comfortable Skin: Warm, dry, no obvious rash Eyes: sclera anicteric, no conjunctival pallor ENT: mucous membranes moist Neck: deferred Respiratory: No signs of respiratory distress Cardiovascular: Appears well perfused, pulses are nml Abdomen: deferred Musculoskeletal: Moving all 4 extremities without obvious discomfort Neurological: Awake and alert, mentation is normal, speech is fluent and appropriate Psychiatric: depressed affect Triage Information Reviewed: Yes Vital Signs Reviewed: Yes Diagnostics - Laboratory Result Diagrams: 08/10/18 03:48 08/10/18 03:48 Lab Statement: Any lab studies that have been ordered have been reviewed, and results considered in the medical decision making process. Re-Evaluation - Re-Evaluation 1st re-eval Re-Evaluation Time: 15:56 Change: Improved Comment: Pt has been calm and cooperative. He is a candidate for the annex and we will place patient on q15 checks. Course/Dx - Course Course Of Treatment: Pt is a 22 y/ M brought in by ambulance and police presents to ED for MHE. Pt says he's been upset for the past month, he denies any specific problem. He had a plan to suffocate himself with a plastic bag. He had obtained a bag. He saw a counselor for the first time last week at [facility]. Denies medications. No previous suicide attempts. Labwork, UA and toxicology are all unremarkable. Per spray rig operator at 0518: Dr. Oviedo, psych, recommends admission to U or transfer to accepting facility. Dx: SI, depression. Patient will be signed out to Dr. Martin at shift change pending disposition [facility] - Differential Dx/Clinical Impression Provider Diagnosis: Depression, Suicidal ideation Discharge - Sign-Out/Discharge Documenting (check all that apply): Sign-Out Patient Signing out patient TO: Stephanie Martin - pending disposition, [facility] or trans Patient Received Moderate/Deep Sedation with Procedure: No - Discharge Plan Condition: Stable Disposition: ADMITTED TO [facility] Referrals: [facility] - Nahun ELKINS [Z.BUSINESS, APPLICATION, OTHER] - - Billing Disposition and Condition Condition: STABLE Disposition: Admitted to [facility] - Attestation Statements Document Initiated by Scribe: Yes Documenting Scribe: Jessica Funes Provider For Whom Scribe is Documenting (Include Credential): Dr. Alber Rodriguez MD Scribe Attestation: I, Jessica Funes, scribed for Dr. Alber Rodriguez MD on 08/10/18 at 1831. Scribe Documentation Reviewed: Yes Provider Attestation: The documentation as recorded by the roxyibe, Jessica Funes accurately reflects the service I personally performed and the decisions made by me, Dr. Alber Rodriguez MD Status of Scribe Document: Viewed
[2018-08-10 04:00] LABS: ABS Basophils 0 10^3/ul (0-0.2); ABS Eosinophils 0.1 10^3/ul (0-0.6); ABS Lymphocytes 1.9 10^3/ul (1.0-4.8); ABS Monocytes 0.4 10^3/ul (0-0.8); ABS Neutrophils 4.4 10^3/ul (1.5-7.7); ABS Nucleated RBC 0 10^3/ul; Eosinophil % 1.2 %; Hematocrit 43 % (36-46); Hemoglobin 14.7 g/dL (14.0-18.0); Lymphocyte % 28.2 %; Mean Corpuscular HGB Conc 34 g/dL (31-36); Mean Corpuscular Hemoglobin 29 pg (27-31); Mean Corpuscular Volume 85 fL (80-94); Mean Platelet Volume 8.9 fL (7.4-10.4); Nucleated Red Blood Cells % 0.1; Platelet Count 184 10^3/uL (150-450); Red Blood Count 5.09 10^6 /uL (4.18-5.48); Red Cell Distribution Width 13 % (10.5-15); Urine Appearance Clear; Urine Bilirubin Negative (Negative); Urine Blood Negative (Negative); Urine Color Yellow; Urine Glucose Negative (Negative); Urine Ketones Negative (Negative); Urine Nitrite Negative (Negative); Urine Protein Negative (Negative); Urine Specific Gravity 1.027 (1.010-1.030); Urine Urobilinogen Negative (Negative); White Blood Count 6.9 10^3/uL (3.5-10.8)
[2018-08-10 04:21] LABS: ALT 9 U/L (7-52); AST 15 U/L (13-39); Albumin/Globulin Ratio 1.9 (1-3); Alkaline Phosphatase 44 U/L (34-104); Anion Gap 6 mmol/L (2-11); Blood Urea Nitrogen 22 mg/dL (6-24); CO2 Carbon Dioxide 28 mmol/L (22-32); Calcium 9.6 mg/dL (8.6-10.3); Chloride 104 mmol/L (101-111); EGFR African American 114.1 (>60); EGFR Non-African American 94.3 (>60); Globulin 2.6 g/dL (2-4); Glucose 105 mg/dL (70-100); Potassium 3.6 mmol/L (3.5-5.0); Sodium 138 mmol/L (135-145); Total Protein 7.6 g/dL (6.4-8.9)
[2018-08-10 04:22] LABS: Acetaminophen < 15 mcg/mL; Alcohol < 10 mg/dL (<10); Barbiturates Urine Screen None Detected (None Detect); Benzodiazepine Urine Screen None Detected (None Detect); Salicylate < 2.50 mg/dL (<30); Urine Cannabinoids Screen None Detected (None Detect)
[2018-08-10 04:36] LABS: TSH (Thyroid Stimulating Horm) 5.55 mcIU/mL (0.34-5.60)
--- NOTE | 2018-08-10 08:06 | ED ---
Progress - Progress Note Progress Note: Pt is a signout from Dr. Rodriguez pending disposition. 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 I discussed the results with the patient, and he is agreeable with being admitted. There is no family hx of suicide but there is a strong fam hx of depression. The pt denies ALLEN, sore throat, dizziness, sob, nausea, vomiting, abd pain. Per Dr. Rodriguez and chart review, pt had a plastic bag and was going to tape it on his head to commit suicide. Pt is agreeable to get help. Per Dr. Oviedo pt will be admitted on 39 status. Home Medications Medication Instructions Recorded Confirmed Type NK [No Home Medications Reported] 08/10/18 08/10/18 History Appearance: well-appearing, no pain distress, well-nourished Skin: Warm, color reflects adequate perfusion, dry Head: Normal Head/Face inspection, atraumatic Eyes: Conjunctiva clear ENT: Normal inspection Neck: Supple, no nodes, no JVD Respiratory: Lungs clear, normal breath sounds, no respiratory distress Cardio: RRR, No murmur, pulses normal, brisk capillary refill Abdomen: Soft, nontender Bowel sounds: Present Musculoskeletal: Strength Intact/ROM intact, no calf tenderness, no edema. Psychological: Calm, cooperative, good eye contact Neuro: Alert, muscle tone normal, no focal deficit - Results/Orders Results/Orders: EKG at 0823 Sinus bradycardia at 52bpm. Nonspecific ST changes. No ectopy. No acute change compared with 07/14/16. - Consult/PCP Time Called: 04:00 Re-Evaluation - Re-Evaluation 1st re-eval Re-Evaluation Time: 15:56 Change: Improved Comment: Pt has been calm and cooperative. He is a candidate for the annex and we will place patient on q15 checks. Course/Dx - Course Course Of Treatment: Pt is a signout from Dr. Rodriguez pending disposition. Pt presented after suicide gesture and ideation, placing plastic bag over his head. 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 I discussed the results with the patient, and he is agreeable with being admitted. There is no family hx of suicide but a strong fam hx of depression. The pt denies ALLEN, sore throat, dizziness, sob, nausea, vomiting, abd pain. EKG shows Sinus bradycardia at 52bpm. Nonspecific ST changes. No ectopy. No acute change compared with 07/14/16. The pt will be signed out to Dr. Rodriguez [facility]. - Diagnoses Provider Diagnoses: Depression, Suicidal ideation Discharge - Sign-Out/Discharge Documenting (check all that apply): Patient Departure, Sign-Out Patient, Receiving Sign-Out Signing out patient TO: Alber Rodriguez - 08/10/18, 1900 Receiving patient FROM: Alber Rodriguez - 08/10/18, 0700 - Discharge Plan Condition: Stable Disposition: [facility]IATRIC FACILITY-[facility] [place] [place] - Billing Disposition and Condition Condition: STABLE Disposition: Psychiatric Facility [facility] [place] [place] - Attestation Statements Document Initiated by Ryibe: Yes Documenting Scribe: Alejandra Dobbins Provider For Whom Janel is Documenting (Include Credential): Dr. Stephanie Martin MD. Scribe Attestation: Alejandra Kerr scribed for Dr. Stephanie Martin MD. on 08/10/18 at 2300. Scribe Documentation Reviewed: Yes Provider Attestation: The documentation as recorded by the ryibeAlejandra accurately reflects the service I personally performed and the decisions made by me, Dr. Stephanie Martin MD. Status of Scribe Document: Viewed
[2018-08-10] MEDS ORDERED: Acetaminophen TAB* 325 MG PO PRN (11:41)
[2018-08-10] MEDS ORDERED: Al Hydrox/Mg Hydrox/Simet LIQ* 30 ML UDC PO PRN (11:41)
[2018-08-10] MEDS ORDERED: hydrOXYzine HCL TAB* 50 MG PO PRN (11:42)
--- NOTE | 2018-08-10 21:09 | ED ---
Progress - Progress Note Progress Note: Pt is a signout from pending admission to [facility]. Dr. Martin discussed the results with the patient, and he is agreeable with being admitted. There is a family hx of suicide. The pt denies ALLEN, sore throat, dizziness, sob, nausea, vomiting, abd pain. Home Medications Medication Instructions Recorded Confirmed Type NK [No Home Medications Reported] 08/10/18 08/10/18 History Appearance: well-appearing, no pain distress, well-nourished Skin: Warm, color reflects adequate perfusion, dry Head: Normal Head/Face inspection, atraumatic Eyes: Conjunctiva clear ENT: Normal inspection Neck: Supple, no nodes, no JVD Respiratory: Lungs clear, normal breath sounds, no respiratory distress Cardio: RRR, No murmur, pulses normal, brisk capillary refill Abdomen: Soft, nontender Bowel sounds: Present Musculoskeletal: Strength Intact/ROM intact, no calf tenderness, no edema. Psychological: Calm, cooperative, good eye contact Neuro: Alert, muscle tone normal, no focal deficit - Results/Orders Results/Orders: EKG at 0823 Sinus bradycardia at 52bpm. Nonspecific ST changes. No ectopy. No acute change compared with 07/14/16. - Consult/PCP Time Called: 04:00 Re-Evaluation - Re-Evaluation 1st re-eval Re-Evaluation Time: 15:56 Change: Improved Comment: Pt has been calm and cooperative. He is a candidate for the annex and we will place patient on q15 checks. Course/Dx - Course Course Of Treatment: Patirachidn was signed out from Dr. Martin at 1900 at end of shift. Patient will be admitted to [facility] with a dx of SI and depression. Patient is agreeable to this plan. - Diagnoses Provider Diagnoses: Depression, Suicidal ideation Discharge - Sign-Out/Discharge Documenting (check all that apply): Patient Departure - admission, Sign-Out Patient, Receiving Sign-Out Signing out patient TO: Igor Ham Receiving patient FROM: Stephanie Martin All imaging exams completed and their final reports reviewed: Yes Patient Received Moderate/Deep Sedation with Procedure: No - Discharge Plan Condition: Stable Disposition: PSYCHIATRIC FACILITY-[facility] - Billing Disposition and Condition Condition: STABLE Disposition: Psychiatric Facility [facility] - Attestation Statements Document Initiated by Scribe: Yes Documenting Scribe: Cielo Medellin Provider For Whom Scribe is Documenting (Include Credential): MD Ry Gillespieibdamián Attestation: I, Cielo Medellin, scribed for Alber Rodriguez MD on 08/11/18 at 0432. Scribe Documentation Reviewed: Yes Provider Attestation: The documentation as recorded by the Cielo millan accurately reflects the service I personally performed and the decisions made by me, Alber Rodriguez MD Status of Scribe Document: Viewed
[2018-08-11 08:07] LABS: HDL Cholesterol 36.1 mg/dL
[2018-08-11] MEDS: Multivitamins/Minerals TAB PO SCH (08:55)
--- NOTE | 2018-08-11 13:31 | HP ---
H&P (Free Text) History and Physical: Justification for admission: Immediate Safety. CC " I was going to kill myself" The patient was brought to [facility] by ambulance after patient bought a bag and tape and was going to kill himself by placing a bag over his head. He called the suicide crisis hotline in [place] and was brought to the emergency department. He reported that in the last 2-3 months his energy level has been low and he has felt flat. This was his first reported dip of severe depression, and said that he no longer like to hang out with friends or play the piano or [employer]. He denied recent stressors in his life that contributed to him thinking of suicide. He denied access to firearms or stockpiles of medications. He reported trouble with going to sleep and denied morning awakenings. He reported diminished appetite The patient denied homicidal ideation intent or plan. The patient denied auditory and/ or visual hallucinations. MDD Reported ,feeling empty inside, feelings of hopelessness or worthless. Reported loss of energy or lack of motivation to complete tasks. Reported overwhelming feelings of guilt , or decreased concentration. Reported feeling no purpose in life or would be better off . Bipolar Denied symptoms of shoaib such as having many ideas at once. Denied increased talkativeness where no one can interrupt. Denied feeling irritable most of the time while having an persistent abundance of energy most of the day without the use of energy drinks, stimulants, or recreational drug use. Denied an increase in intensity in goal directed activities. Denied having the decreased need to sleep for days , having prolonged elevated heighted mood , or feeling on top of the world. Denied impulsive risky sexual encounters. Denied spending money recklessly , going on spending sprees wiping out savings. Denied impulsively traveling out of town or country, having super bowens, and unrealistic wealth or fame. Anxiety Denied having symptoms of anxiety such as having times where heart feels that it is beating out of chest , sweaty palms, or shallow breathing. Denied having uncomfortable or intrusive thoughts. Denied feeling restless, high strung, or worrying too much most of the time. Psychosis Does not endorse hearing things that other people do not hear or seeing things other people do not see. Denied feeling that TV is making references. Denied feeling that people are spying , following , or reading their thoughts. Phobias: Patient denied having excessive fear of a particular thing or situation. Eating disorders: Patient denied having excessive eating habits or feelings of guilt after eating. Denied repeated episodes of self induced vomiting after eating. PTSD Denied flashbacks, nightmares and avoidance of a prior traumatic event. PAST PSYCHIATRIC HISTORY: Prior Diagnosis :none History of past Psychiatric Hospitalizations: No prior psychiatric admission. History of past suicide/homicide attempts : Denied past suicide attempts. Denied past homicidal incidents. Outpatient follow-up: none Medications: No Past trials of medication Guardianship: None. FAMILY HISTORY: - Suicide: Denied family history of suicide. - Mental illness: Reported possible depression in his mother - Substance abuse: Denied substance abuse among family members. SUBSTANCE ABUSE HISTORY: Denied using tobacco, heroin and cocaine other illicit substances. Denied abusing pills not prescribed . Denied past Substance abuse treatment. He reported using alcohol socially on the weekends and did not have a history of DUI or black outs. SOCIAL HISTORY: - Childhood: Grew up in [place] raised by both parents. 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 No children currently has a girlfriend. Plans to join the [employer] after graduating. PAST MEDICAL HISTORY: Denied heart disease, diabetes, cancer and/ or other medical conditions. - Allergies: Denied drug or other allergies. Physical Exam: Please see ED note Mental Status Exam on Admission APPEARANCE : 22 year old who appears stated age. Patient is not malodourous, and appears to have fair hygiene and grooming. BEHAVIOR: Cooperative , calm EYE CONTACT: Fair PSYCHOMOTOR ACTIVITY: No psychomotor agitation or retardation. MOVEMENTS: No abnormal movements observed. SPEECH : Normal rate, rhythm, volume and tone. MOOD : "I was going to end my life " AFFECT : blunted THOUGHT PROCESS: formulated and organized in a logical, linear goal directed manner. No flight of ideas , neologism (made up words) , perseveration , tangential , loose associations , or circumstantiality. THOUGHT CONTENT: no delusions, preoccupations, obsessions, phobias or preoccupations. PERCEPTION: No current auditory or visual hallucinations. Doesnt appear to be responding to internal cues. No evidence of depersonalization , de-realization, or illusions SUICIDALITY Recent suicidal ideation with plan to end his life by suffocation HOMICIDALITY Denied homicidal ideation, intent or plan. Insight/judgment: Good insight and judgment ORIENTATION: Oriented to self, location, and time. Diagnosis on Admission: Major depressive disorder, severe Assessment: 22 year old male with no prior psychiatric history and recent suicidal ideation, came to the hospital and was admitted to the B[facility] at [facility]. Plan #Patient evaluated in ED and was determined by the emergency room Physician to be medically stable for admission to the BSU. # Justification for Admission: For immediate safety per outlined in the [facility] Code. # 9.39 The patient requires inpatient admission at this time to assure safety, receive treatment and work toward stabilization. # Labs ordered: CBC, CMP, UDS, TSH, HBA1c, TSH, Toxicology screen, Urine analysis, and lipid profile. #Admit to BSU, Q15 minute observation. Start regular diet. Encourage participation in activities on the milieu. # Obtain Release to speak to parents # Collaboration with Social Work to work toward discharge planning. #Start lexapro 10mg PO daily #Tentative Discharge date 08/16/18 # Parents are in town and visited today #Goals before discharge include: Decrease depression, arrange for outpatient follow up before discharge. The risks, benefits, and alternative treatment options were discussed as well as of the risks of refusing treatment. After this discussion and an acknowledgement of this understanding was made. A risk/ benefit assessment of treatment was considered and discussed with the patient. When comparing the risks of treatment with the dangers of not receiving treatment, the benefits of treatment outweigh the treatment risks at this time. Risks of suicidal ideation , behavioral changes, sexual , cardiac conduction changes, serotonin syndrome, metabolic risks were among some of the risks discussed.
[2018-08-11] MEDS: Escitalopram * 10 MG TAB PO SCH (14:51)
[2018-08-12] MEDS: Multivitamins/Minerals TAB PO SCH (09:09)
[2018-08-12] MEDS: Escitalopram * 10 MG TAB PO SCH (09:09)
[2018-08-12] MEDS: guaiFENesin ER TAB 600 MG PO PRN (09:10)
--- NOTE | 2018-08-12 17:08 | PN ---
Subjective - Subjective Date of Service: 08/12/18 Service Type: 28536 Hosp care 15 min low complexity Subjective: Irvin is seen in weekend coverage for Dr. Flores. He is calm and cooperative, states that he is tolerating the trial of escitalopram well, without untoward effects. He denies SI and states that his family has come up this weekend from [place] to support him. He has no complaints. Objective - General Observations Appearance: Well Groomed Appears Stated Age: No Stature: WNL Posture: WNL Eye Contact: Average Behavior/Activity: WNL - Interaction Observations Attitude Towards Examiner: Cooperative Stated Mood: Dysphoric Affect: Restricted Speech Pattern/Tone: Clear Thought Process: Coherent Perception: WNL Thought Content: WNL Hallucination Type: None Delusion Type: None - Cognitive Function Orientation: A&O x 4 Level of Consciousness: Awake Cognition: WNL Estimated Intelligence: Normal Insight: WNL Judgment Within Normal Limits: Yes - Medication Compliance Cooperative with Inpatient Medication Regimen: Yes - Group Participation Participates in Group Activities: Yes Assessment - Assessment Merits Inpatient Hospitalization: For Immediate Safety, For Stabilization Inpatient DSM-V Dx: F32.2 Clinical Impression: 22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 BSU: Problem List - Patient Problems (1) MDD (major depressive disorder), single episode, severe , no psychosis Current Visit: Yes Status: Acute Priority: High Code(s): F32.2 - MAJOR DEPRESSV DISORD, SINGLE EPSD, SEV W/O PSYCH FEATURES SNOMED Code(s): 56584450 Plan - Plan Treatment Plan: Name: IRVIN KELSEY Birthdate: 1995 [id number] The patient is improving on escitalopram 10mg PO qday. Continue inpatient treatment. Continued Medication Management: Start Medication Medications: Current Medications Acetaminophen (Tylenol Tab*) 650 mg PO Q4H PRN PRN Reason: for pain; or Temp >101 F Al Hydrox/Mg Hydrox/Simethicone (Maalox Plus*) 30 ml PO Q4H PRN PRN Reason: INDIGESTION Escitalopram Oxalate (Lexapro *) 10 mg PO DAILY [facility] Last Admin: 08/12/18 09:09 Dose: 10 mg Guaifenesin (Mucinex*) 600 mg PO Q12H PRN PRN Reason: COLD SYMPTOM RELIEF Last Admin: 08/12/18 09:10 Dose: 600 mg Multivitamins/Minerals (Theragran/Minerals Tab*) 1 tab PO DAILY [facility] Last Admin: 08/12/18 09:09 Dose: Not Given - Discharge Plan Discharge Plan: Inpatient Hospitalization
[2018-08-13] MEDS: Multivitamins/Minerals TAB PO SCH (08:35)
[2018-08-13] MEDS: Escitalopram * 10 MG TAB PO SCH (08:35)
[2018-08-13] MEDS: guaiFENesin ER TAB 600 MG PO PRN (08:35)
[2018-08-14] MEDS: Multivitamins/Minerals TAB PO SCH (08:53)
[2018-08-14] MEDS: Escitalopram * 10 MG TAB PO SCH (08:53)
--- NOTE | 2018-08-14 10:22 | PN ---
Subjective - Subjective Date of Service: 08/14/18 Service Type: [id number] Hosp care 35 min high complexity Subjective: Nursing Report: Patient was visible on unit, no chemical restraints or PRNs. Slept overnight without incident. Attending group activities. CC: "I am doing better Patient was seen and evaluated by this provider. The patient reported that he feels safe on the unit and is interacting with peers. He reported having an adequate appetite and sleep. The patient reports attending and participating in day groups. Per nursing no behavioral issues or overnight events reported. Patient reported that he is tolerating medications without side effects. He denied suicidal ideation, intent or plan. He denied homicidal ideation intent or plan. He denied auditory and or visual hallucinations. Objective - General Observations Appears Stated Age: Yes Stature: WNL Posture: WNL Eye Contact: Average Behavior/Activity: WNL - Interaction Observations Attitude Towards Examiner: Cooperative Attitude Towards Parent/Guardian: Positive Interaction Stated Mood: Euthymic Affect: Full Speech Pattern/Tone: Clear Thought Process: Coherent Perception: WNL Thought Content: WNL Hallucination Type: None Delusion Type: None - Cognitive Function Orientation: A&O x 4 Level of Consciousness: Awake Cognition: WNL Estimated Intelligence: Above Normal Insight: WNL Judgment Within Normal Limits: Yes - Medication Compliance Cooperative with Inpatient Medication Regimen: Yes - Group Participation Participates in Group Activities: Yes Assessment - Assessment Inpatient DSM-V Dx: F32.2 Clinical Impression: 22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 Plan - Plan Treatment Plan: Name: DESHAUN KELSEY Birthdate: 1995 [id number] # 9.39 The patient requires inpatient admission at this time to assure safety, receive treatment and work toward stabilization. #Q30 min and staff pass # Plan to discharge tomorrow # Collaboration with Social Work to work toward discharge planning. #Continue lexapro 10mg PO daily #Goals before discharge include: Decrease depression, arrange for outpatient follow up before discharge. Sodium 138 mmol/L (135-145) 08/10/18 03:48 Potassium 3.6 mmol/L (3.5-5.0) 08/10/18 03:48 BUN 22 mg/dL (6-24) 08/10/18 03:48 Creatinine 1.00 mg/dL (0.67-1.17) 08/10/18 03:48 Hemoglobin A1c 5.4 % (4.0-5.6) 08/11/18 07:33 Calcium 9.6 mg/dL (8.6-10.3) 08/10/18 03:48 AST 15 U/L (13-39) 08/10/18 03:48 ALT 9 U/L (7-52) 08/10/18 03:48 Triglycerides 62 mg/dL 08/11/18 07:33 Cholesterol 109 mg/dL 08/11/18 07:33 LDL Cholesterol 61 mg/dL 08/11/18 07:33 Vital Signs Temp Pulse Resp BP Pulse Ox 98.1 F 74 16 127/63 100 08/14/18 08:33 08/14/18 08:33 08/14/18 08:33 08/14/18 08:33 08/14/18 08:33 Continued Medication Management: Continue Outpt Medication Medications: Current Medications Acetaminophen (Tylenol Tab*) 650 mg PO Q4H PRN PRN Reason: for pain; or Temp >101 F Last Admin: 08/13/18 08:35 Dose: 650 mg Al Hydrox/Mg Hydrox/Simethicone (Maalox Plus*) 30 ml PO Q4H PRN PRN Reason: INDIGESTION Escitalopram Oxalate (Lexapro *) 10 mg PO DAILY [facility] Last Admin: 08/14/18 08:53 Dose: 10 mg Guaifenesin (Mucinex*) 600 mg PO Q12H PRN PRN Reason: COLD SYMPTOM RELIEF Last Admin: 08/13/18 08:35 Dose: 600 mg Multivitamins/Minerals (Theragran/Minerals Tab*) 1 tab PO DAILY [facility] Last Admin: 08/14/18 08:53 Dose: 1 tab - Discharge Plan Discharge Plan: Inpatient Hospitalization
[2018-08-15 08:51] VITALS: BP 131/65
[2018-08-15] MEDS: Escitalopram * 10 MG TAB PO SCH (09:00)
[2018-08-15] MEDS: Multivitamins/Minerals TAB PO SCH (09:00)
--- NOTE | 2018-08-15 10:36 | DS ---
Subjective - Subjective Service Types: [address] [facility] Day Mgmt complex over 30 min Discharge Date: 08/15/18 Subjective: CC: "I feel ready to leave" Patient ready for discharge and looks forward to seeing parents and his girlfriend for dinner. Looks forward to finishing school. He was interacting with peers and sleep well overnight. He engaged in yoga this morning. Justification for admission: Immediate Safety. CC " I was going to kill myself" The patient was brought to [facility] by ambulance after patient bought a bag and tape and was going to kill himself by placing a bag over his head. He called the suicide crisis hotline in [place] and was brought to the emergency department. He reported that in the last 2-3 months his energy level has been low and he has felt flat. This was his first reported dip of severe depression, and said that he no longer like to hang out with friends or play the piano or [email or web address]. He denied recent stressors in his life that contributed to him thinking of suicide. He denied access to firearms or stockpiles of medications. He reported trouble with going to sleep and denied morning awakenings. He reported diminished appetite The patient denied homicidal ideation intent or plan. The patient denied auditory and/ or visual hallucinations. MDD Reported ,feeling empty inside, feelings of hopelessness or worthless. Reported loss of energy or lack of motivation to complete tasks. Reported overwhelming feelings of guilt , or decreased concentration. Reported feeling no purpose in life or would be better off . Bipolar Denied symptoms of shoaib such as having many ideas at once. Denied increased talkativeness where no one can interrupt. Denied feeling irritable most of the time while having an persistent abundance of energy most of the day without the use of energy drinks, stimulants, or recreational drug use. Denied an increase in intensity in goal directed activities. Denied having the decreased need to sleep for days , having prolonged elevated heighted mood , or feeling on top of the world. Denied impulsive risky sexual encounters. Denied spending money recklessly , going on spending sprees wiping out savings. Denied impulsively traveling out of town or country, having super bowens, and unrealistic wealth or fame. Anxiety Denied having symptoms of anxiety such as having times where heart feels that it is beating out of chest , sweaty palms, or shallow breathing. Denied having uncomfortable or intrusive thoughts. Denied feeling restless, high strung, or worrying too much most of the time. Psychosis Does not endorse hearing things that other people do not hear or seeing things other people do not see. Denied feeling that TV is making references. Denied feeling that people are spying , following , or reading their thoughts. Phobias: Patient denied having excessive fear of a particular thing or situation. Eating disorders: Patient denied having excessive eating habits or feelings of guilt after eating. Denied repeated episodes of self induced vomiting after eating. PTSD Denied flashbacks, nightmares and avoidance of a prior traumatic event. PAST PSYCHIATRIC HISTORY: Prior Diagnosis :none History of past Psychiatric Hospitalizations: No prior psychiatric admission. History of past suicide/homicide attempts : Denied past suicide attempts. Denied past homicidal incidents. Outpatient follow-up: none Medications: No Past trials of medication Guardianship: None. FAMILY HISTORY: - Suicide: Denied family history of suicide. - Mental illness: Reported possible depression in his mother - Substance abuse: Denied substance abuse among family members. SUBSTANCE ABUSE HISTORY: Denied using tobacco, heroin and cocaine other illicit substances. Denied abusing pills not prescribed . Denied past Substance abuse treatment. He reported using alcohol socially on the weekends and did not have a history of DUI or black outs. SOCIAL HISTORY: - Childhood: Grew up in [place] raised by both parents. Currently a senior at [employer] with a major in biology. No children currently has a girlfriend. Plans to join the [employer] after graduating. PAST MEDICAL HISTORY: Denied heart disease, diabetes, cancer and/ or other medical conditions. - Allergies: Denied drug or other allergies. Physical Exam: Please see ED note Mental Status Exam on Admission APPEARANCE : 22 year old who appears stated age. Patient is not malodourous, and appears to have fair hygiene and grooming. BEHAVIOR: Cooperative , calm EYE CONTACT: Fair PSYCHOMOTOR ACTIVITY: No psychomotor agitation or retardation. MOVEMENTS: No abnormal movements observed. SPEECH : Normal rate, rhythm, volume and tone. MOOD : "I was going to end my life " AFFECT : blunted THOUGHT PROCESS: formulated and organized in a logical, linear goal directed manner. No flight of ideas , neologism (made up words) , perseveration , tangential , loose associations , or circumstantiality. THOUGHT CONTENT: no delusions, preoccupations, obsessions, phobias or preoccupations. PERCEPTION: No current auditory or visual hallucinations. Doesnt appear to be responding to internal cues. No evidence of depersonalization , de-realization, or illusions SUICIDALITY Recent suicidal ideation with plan to end his life by suffocation HOMICIDALITY Denied homicidal ideation, intent or plan. Insight/judgment: Good insight and judgment ORIENTATION: Oriented to self, location, and time. Diagnosis on Admission: Major depressive disorder, severe Diagnosis on Discharge:Major depressive disorder, partial remission Condition at the time of discharge: At the time of discharge patient showed improvement of sleep and appetite. The patient was not a danger to self or others. The patient denied suicidal ideations , intent or plans. The patient denied homicidal targets, ideations, intents or plans. This patient participated in psychosocial rehabilitation and gained some insight into problems. The patient gained insight into mental illness, triggers, and treatment. The patient took medication as prescribed. The patient denied side effects of medication and objective signs of side effects were not evident. Therapy Resources were offered to the patient. Patient was given a supply of prescriptions at the time of discharge. The patient plans to attend follow up care with the follow up arrangements that were discussed and put in place. Patient was asked to keep appointments as scheduled, take medication as prescribed, have routine follow up care with their primary care physician and refrain from any use of alcohol or drugs. Objective - Appearance Appearance: Healthy Appearing Dysmorphic Features: No Hygiene: Normal Grooming: Well Kept - Behavior Psychomotor Activities: Normal Exhibits Abnormal Movement: No - Attitude and Relatedness Attitude and Relatedness: Cooperative Eye Contact: Good - Speech Quality: Unpressured Latencies: Normal Quantity: Appropriate - Mood Patient's Decription of Mood: "Good" - Affect Observed Affect: Non-labile Affect Consistent with: Euthymia - Thought Process Patient's Thought Process: Coherent, Goal Directed Thought Content: No Passive Wish, No Suicidal Planning, No Homicidal Ideation, No Paranoid Ideation - Sensorium Experiencing Hallucinations: No, Sensorium is Clear Type of Hallucinations: Visual: No, Auditory: No, Command: No - Level of Consciousness Level of Consciousness: Alert Orientation: Yes Intact, Yes Orientated to Time, Yes Orientated to Place, Yes Orientated to Person - Impulse Control Impulse Control: Intact - Insight and Judgement Insight and Judgement: Good - Group Participation Particating in Group Activities: Yes - Medication Management Medication Management Adherence: Yes Treatment Course & Assessment Clinical Course & Impression: Hospital course part A: 22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 Hospital course part B: Labs ordered included CBC, CMP, UDS, TSH, TSH, Toxicology screen, Urine analysis. Labs were reviewed and did not require the need for further evaluation. Vital signs were monitored during the course of admission. The patient was admitted to the adult behavioral unit and placed on 15 minute check for safety. At a later time the patient was on Q30 minute observation and staff pass privileges. With those limits being extended , there were no occurrence of behavioral incidents. The patient did well on the unit and went to groups. Interacted with peers had adequate sleep and regular appetite. Tolerated medication changes without side effects. Group therapy and services were offered. The risks, benefits, and alternative treatment options were discussed as well as of the risks of refusing treatment. Treatment associated risks discussed . After this discussion and made an acknowledgement of this understanding. Follow up care appointments were put in place for follow up care within 7 days of discharge. Patient presents with a broader range of affect, and the absence of depressed mood, delusions, perceptual disturbances and or suicidal ideation. Overall, the patient responded well to inpatient treatment as evidenced by their report of strengthening of coping mechanisms , reduced distress, and more positive outlook on circumstances. Of note there was an improvement psychotic symptoms and absence of suicidal ideation. The patient expressed readiness for discharge home. Safety precautions were put in place which included involving family to closely monitor for changes in mental state. In addition, implementing follow up care removing/securing firearms, weapons and stockpile of medications which were not applicable. Family and patient instructed to immediately call 911 should any safety concerns arise. The patient was advised of the 24 hour / 7 days a week availability of the emergency room and to call 911 in the event of becoming suicidal and/ or homicidal and for all other emergencies. The patient was informed of the contact information for [facility], Suicide Prevention and Crisis Services, National Suicide Prevention Lifeline, [facility], Alcoholics Anonymous, and [facility]. Medications started included lexapro 10mg daily and was tolerated well. Patient showed insight into driving of self deprecating thoughts which were thinking he is selfish and does everything for himself, and doesnt help others. He tolerated medications well and was advised of sexual side effects. Family meeting took place during visiting hours and were contacted before discharge who are in agreement with discharge. Improvements in patient from the time of admission include: Improved affect, sleep and decrease in anxiety. No longer suicidal and no longer having feelings of hopelessness. Patients social interaction improved as did his energy levels. No signs of treatment induced signs of shoaib were present. Risk factors: Age, Single, Depression diagnosis. Protective factors: Currently no suicidal ideation, intent or plan. No prior history of suicide attempt. Has strong support system. currently no feelings of hopelessness, not in a occupation of social isolation, doesnt have multiple medical conditions, no family history of suicide, doesnt have access to firearms. Doesnt have command hallucinations and or psychotic features at this time. No history of substance abuse. No history of alcohol abuse. No changes in relationship status, housing, job, or school. Currently future orientated. Patient engaged in treatment and compliant with medication. Merits Inpatient Hospitalization: No Clear for Discharge: Adequate Clinical Respons Inpatient DSM-V Dx: F32.2 Discharge Planning - Discharge Planning Discharge Plan: Outpatient Follow Up Outpatient Program: Counseling/Psych Services at [employer] Recommendations for Continuing Care: Medication Management Medications: Current Medications Acetaminophen (Tylenol Tab*) 650 mg PO Q4H PRN PRN Reason: for pain; or Temp >101 F Last Admin: 08/13/18 08:35 Dose: 650 mg Al Hydrox/Mg Hydrox/Simethicone (Maalox Plus*) 30 ml PO Q4H PRN PRN Reason: INDIGESTION Escitalopram Oxalate (Lexapro *) 10 mg PO DAILY [facility] Last Admin: 08/15/18 09:00 Dose: 10 mg Guaifenesin (Mucinex*) 600 mg PO Q12H PRN PRN Reason: COLD SYMPTOM RELIEF Last Admin: 08/13/18 08:35 Dose: 600 mg Multivitamins/Minerals (Theragran/Minerals Tab*) 1 tab PO DAILY [facility] Last Admin: 08/15/18 09:00 Dose: 1 tab Discharge Planning: Prescriptions provided for discharge [x] Yes [] No Follow up care details as per social work arrangements. Patient response to discharge plan: [] eager for discharge [x] agreeable with discharge plan [] ambivalent about discharge [] disagrees with discharge today
--- NOTE | 2018-08-15 11:09 | PN ---
BSU: Group Therapy Note - Service Type Service Type: [id number] Group Psychotherapy - Cognitive Behavioral Group Therapy ( CBT):Patient was attentive and participatory in CBT programming this morning, and remained in good behavioral control. Patient expressed positive insights regarding relevant treatment interventions and goals.
== END 2018-08-15 13:05 | disposition home or self-care (01) | DRG 751 ==
LOC: ED 03:31 → BSU 19:49
PROVIDERS: ADMIT Psychiatry & Neurology Psychiatry; ATTEND Psychiatry & Neurology Psychiatry
PROC: GZHZZZZ Group Psychotherapy (ICD-10-PCS; principal; 2018-08-15)
DX: F32.2 Major depressive disorder, single episode, severe without psychotic features (principal); R45.851 Suicidal ideations; Z72.89 Other problems related to lifestyle
CPT/HCPCS: 36415; 80053; 80061; 80307; 80320; 80329; 81003; 83036; 84443; 85025; 90853; 93005; 99222; 99231; 99233; 99238; 99285; A9270-GY; G0480